=== PATIENT | female | born 1960 | race Caucasian/White ===

== ENCOUNTER 2017-09-30 18:33 | Emergency (ER) | payer MEDICAID, OTHER ==
[2017-09-30 18:51] VITALS: BP 138/90; PULSE 75; RESP 20; TEMP 98.1; O2SAT 100
--- NOTE | 2017-09-30 19:51 | C.PDOC ---
History Of Present Illness 57yo female with history of arthritis and chronic pain, presents to ED with complaints of bilateral knee pain. She has been taking Naproxen and Ibuprofen with no relief of pain. She is currently requesting an injection for pain relief. Patient denies any trauma, injuries, weakness, numbness or tingling to her lower extremities. She offers no other medical complaints. PMD: Barbara Pierre Time Seen by Provider: 09/30/17 19:14 Chief Complaint (Nursing): Lower Extremity Problem/Injury History Per: Patient History/Exam Limitations: no limitations Onset/Duration Of Symptoms: Persistent Current Symptoms Are (Timing): Still Present Additional History Per: Patient Past Medical History Reviewed: Historical Data, Nursing Documentation, Vital Signs Vital Signs: Last Vital Signs Temp 98.1 F 09/30/17 18:44 Pulse 75 09/30/17 18:44 Resp 20 09/30/17 20:02 BP 138/90 09/30/17 18:44 Pulse Ox 100 09/30/17 21:35 - Medical History PMH: Asthma, HTN, Chronic Pain Surgical History: No Surg Hx Family History: States: No Known Family Hx - Social History Hx Tobacco Use: No Hx Alcohol Use: Yes Hx Substance Use: No - Immunization History Hx Influenza Vaccination: No Hx Pneumococcal Vaccination: No Review Of Systems Except As Marked, All Systems Reviewed And Found Negative. Musculoskeletal: Positive for: Other (bilateral knee pain) Neurological: Negative for: Weakness, Numbness, Other (tingling) Physical Exam - Physical Exam Appears: Non-toxic, No Acute Distress Skin: Normal Color, Warm, Dry Head: Atraumatic, Normacephalic Eye(s): bilateral: Normal Inspection, PERRL Neck: Normal ROM, Supple Extremity: Normal ROM (FROM of bilateral knees. ), Tenderness (mild tenderness to palpation of bilateral knees; minimal tenderness with movement.), Capillary Refill (< 2 sec), Other (no erythema, warmth, or effusion noted to bilateral knees) Neurological/Psych: Oriented x3, Normal Motor, Normal Sensation Gait: Steady (ambulating without difficulty) ED Course And Treatment O2 Sat by Pulse Oximetry: 100 (RA) Pulse Ox Interpretation: Normal Progress Note: Patient given Toradol 30mg IM with marked relief of pain. Patient is stable for discharge home and instructed to follow up with PMD in 2- 3 days. Disposition Counseled Patient/Family Regarding: Diagnosis, Need For Followup, Rx Given - Disposition Referrals: Barbara Pierre [Medical Doctor] - Disposition: HOME/ ROUTINE Disposition Time: 19:48 Condition: STABLE Additional Instructions: Please follow up with PMD Continue NSAIDS Use JOSE ANTONIO bandage or knee brace for support Return to ER if worse Instructions: Chronic Knee Pain (DC), Patellofemoral Pain Forms: [employer] (Algerian) Print Language: BENGALI - Clinical Impression Clinical Impression: Arthralgia of knee - PA / DRONE PILOT / Resident Statement MD/DO has reviewed & agrees with the documentation as recorded. - Scribe Statement The provider has reviewed the documentation as recorded by the Scribe (Ct Merchant) Provider Attestation: All medical record entries made by the Scribe were at my direction and personally dictated by me. I have reviewed the chart and agree that the record accurately reflects my personal performance of the history, physical exam, medical decision making, and the department course for this patient. I have also personally directed, reviewed, and agree with the discharge instructions and disposition.
== END 2017-09-30 20:02 | disposition home or self-care (01) ==
LOC: C.ER 18:33
DX: M25.562 Pain in left knee (principal); M25.561 Pain in right knee
CPT/HCPCS: 96372; 99284; J1885